=== PATIENT | female | born 1960 | race Caucasian/White ===

== ENCOUNTER 2017-07-08 22:23 | Emergency (ER) | payer OTHER | END 2017-07-09 02:04 | disposition home or self-care (01) | LOC: E/R 07-09 02:04 | DX: F10.920 Alcohol use, unspecified with intoxication, uncomplicated (principal); S00.83XA Contusion of other part of head, initial encounter; I10 Essential (primary) hypertension; R40.2142 Coma scale, eyes open, spontaneous, at arrival to emergency department; R40.2252 Coma scale, best verbal response, oriented, at arrival to emergency department; R40.2332 Coma scale, best motor response, abnormal flexion, at arrival to emergency department; W01.198A Fall on same level from slipping, tripping and stumbling with subsequent striking against other object, initial encounter; Y92.9 Unspecified place or not applicable | CPT/HCPCS: 70450; 99284-25 ==

== ENCOUNTER 2017-10-07 23:33 | Emergency (ER) | payer SELFPAY, OTHER | END 2017-10-08 03:04 | disposition left against medical advice (07) | LOC: FTE 23:33 | DX: Z53.21 Procedure and treatment not carried out due to patient leaving prior to being seen by health care provider (principal) ==

== ENCOUNTER 2017-11-03 06:40 | Inpatient (IN) | payer OTHER ==
[2017-11-03] MEDS: ONDANSETRON 4 MG INJ IV ×4 (06:52→23:21)
[2017-11-03] MEDS: morphine 2 MG INJ IV (06:53)
[2017-11-03] MEDS: SOD CHLORIDE 0.9% 1,000 ML IV ×2 (06:53→20:47)
[2017-11-03] MEDS: DIPHTH/TET/ACEL PERTUSS (ADULT) 0.5 ML VIAL IM* (06:54)
[2017-11-03 07:23] LABS: ADD MAN DIFF? NO; BASOPHIL # 0.1 10^3/ul (0.0-0.1); BASOPHILS % 1.2 % (0.0-2.0); HEMATOCRIT 32.4 % (37.0-47.0); HEMOGLOBIN 10.9 g/dl (12.0-16.0); IMMATURE GRANS #M 0.03 10^3/ul; IMMATURE GRANS % (M) 0.3 %; LYMPHOCYTES # 0.9 10^3/ul (0.8-2.9); LYMPHOCYTES % 8.2 % (15.0-51.0); MEAN CORPUSCULAR HEMOGLOBIN 30.8 pg (29.0-33.0); MEAN CORPUSCULAR HGB CONC 33.6 g/dl (32.0-37.0); MEAN CORPUSCULAR VOLUME 91.5 fl (82.0-101.0); MEAN PLATELET VOLUME 9.4 fl (7.4-10.4); MONOCYTE # 0.4 10^3/ul (0.3-0.9); MONOCYTES % 3.3 % (0.0-11.0); NEUTROPHIL # 9.6 10^3/ul (1.6-7.5); PLATELET COUNT 251 10^3/UL (140-415); RED BLOOD COUNT 3.54 10^6/ul (4.20-5.40); RED CELL DISTRIBUTION WIDTH 15.9 % (11.5-14.5)
[2017-11-03 07:40] LABS: ALANINE AMINOTRANSFERASE 27 IU/L (13-69); ALBUMIN 4.3 g/dl (3.3-4.9); ALBUMIN/GLOBULIN RATIO 1.19; ALKALINE PHOSPHATASE 179 IU/L (42-121); ANION GAP 23 (8-16); ASPARTATE AMINO TRANSFERASE 77 IU/L (15-46); BILIRUBIN,INDIRECT 0.3 mg/dl (0-1.1); BILIRUBIN,TOTAL 0.3 mg/dl (0.2-1.3); BLOOD UREA NITROGEN 10 mg/dl (7-20); CALCIUM 8.7 mg/dl (8.4-10.2); CARBON DIOXIDE 17 mmol/L (21-31); CHLORIDE 111 mmol/L (97-110); CREATINE KINASE 148 IU/L (23-200); CREATININE 0.41 mg/dl (0.44-1.00); GLUCOSE 99 mg/dl (70-220); POTASSIUM 3.3 mmol/L (3.5-5.1); SODIUM 148 mmol/L (135-144); TOTAL PROTEIN 7.9 g/dl (6.1-8.1)
[2017-11-03 07:43] LABS: INR 1.05; PROTIME 13.8 Sec (11.9-14.9); PT RATIO 1.1
[2017-11-03 07:52] LABS: CK INDEX 0.6; CK-MB 0.94 ng/ml (0.0-2.4); TROPONIN-I < 0.010 ng/ml (0.000-0.120)
[2017-11-03] MEDS: MAGNESIUM SULFATE 2 GM, MULTIVITAMINS 10 ML, THIAMINE 100 MG, FOLIC ACID 1 MG in SOD CH... IV (08:17)
[2017-11-03] MEDS: HYDROmorphONE 1 MG/ML SYG IV (08:17)
[2017-11-03] MEDS: HYDROmorphONE 2 MG/ML SYG IV (09:11)
[2017-11-03 10:10] LABS: ADD UMIC YES; UR ASCORBIC ACID NEGATIVE (NEGATIVE); UR BACTERIA FEW /HPF (NONE SEEN); UR BILIRUBIN (Dip) NEGATIVE (NEGATIVE); UR BLOOD (Dip) NEGATIVE (NEGATIVE); UR CLARITY CLOUDY (CLEAR); UR COLOR YELLOW (YELLOW); UR GLUCOSE (Dip) NEGATIVE (NEGATIVE); UR KETONES (Dip) 1+ mg/dL (NEGATIVE); UR LEUKOCYTE ESTERASE (Dip) 3+ Leu/ul (NEGATIVE); UR NITRITE (Dip) NEGATIVE (NEGATIVE); UR NONSQUAMOUS EPITHELIAL CELL 5 /HPF (NONE SEEN); UR RBC 8 /HPF (0-5); UR RENAL EPITHELIAL CELL FEW /HPF (NONE SEEN); UR SQUAMOUS EPITHELIAL CELL FEW /HPF (FEW); UR TOTAL PROTEIN (Dip) 2+ mg/dl (NEGATIVE); UR UROBILINOGEN (Dip) NEGATIVE (NEGATIVE); UR WBC 133 /HPF (0-5)
[2017-11-03 10:18] LABS: AMPHETAMINE/METHAMPHETAMINE Negative (NEGATIVE); BARBITURATES Negative (NEGATIVE); BENZODIAZEPINES Negative (NEGATIVE); CANNABINOIDS Negative (NEGATIVE); COCAINE Negative (NEGATIVE)
[2017-11-03 10:19] LABS: OPIATES Positive (NEGATIVE)
[2017-11-03] MEDS ORDERED: MAGNESIUM HYDROXIDE 30ML CUP PO (16:30)
[2017-11-03] MEDS ORDERED: OXYCODONE/ACETAMINOPHEN (5/325) TAB PO (16:30)
[2017-11-03] MEDS ORDERED: ACETAMINOPHEN 325 MG TAB PO (16:30)
[2017-11-03] MEDS ORDERED: DOCUSATE SODIUM 100 MG CAP PO (16:30)
[2017-11-03] MEDS ORDERED: BISACODYL 10 MG SUPP PR (16:30)
[2017-11-03] MEDS ORDERED: NACL 0.9% 3 ML SYG IV (16:30)
[2017-11-03] MEDS: HYDROmorphONE 0.5 MG/0.5 ML SYG IV ×2 (16:41→21:00)
[2017-11-03] MEDS: METOPROLOL 25 MG TAB PO (20:59)
[2017-11-03] MEDS: ATORVASTATIN 40 MG TAB PO (21:00)
[2017-11-03] MEDS: traZODone 50 MG TAB PO (21:54)
[2017-11-03] MEDS: OXYCODONE/ACETAMINOPHEN (5/325) TAB PO (23:15)
[2017-11-04] MEDS: LORAZEPAM 2 MG INJ IV (01:05)
[2017-11-04] MEDS: SOD CHLORIDE 0.9% 1,000 ML IV ×2 (01:51→12:27)
[2017-11-04] MEDS: PANTOPRAZOLE (EC) 40 MG TAB PO (05:53)
[2017-11-04 06:08] LABS: ADD MAN DIFF? NO
[2017-11-04 06:13] LABS: BASOPHIL # 0.1 10^3/ul (0.0-0.1); BASOPHILS % 0.9 % (0.0-2.0); EOSINOPHILS % 0.2 % (0.0-7.0); HEMATOCRIT 28.5 % (37.0-47.0); HEMOGLOBIN 9.4 g/dl (12.0-16.0); IMMATURE GRANS #M 0.03 10^3/ul; IMMATURE GRANS % (M) 0.3 %; LYMPHOCYTES # 1.4 10^3/ul (0.8-2.9); LYMPHOCYTES % 14.9 % (15.0-51.0); MEAN CORPUSCULAR HEMOGLOBIN 30.6 pg (29.0-33.0); MEAN CORPUSCULAR VOLUME 92.8 fl (82.0-101.0); MEAN PLATELET VOLUME 10.3 fl (7.4-10.4); MONOCYTE # 0.7 10^3/ul (0.3-0.9); MONOCYTES % 7.2 % (0.0-11.0); NEUTROPHIL # 6.9 10^3/ul (1.6-7.5); NEUTROPHILS % 76.5 % (39.0-77.0); PLATELET COUNT 178 10^3/UL (140-415); RED BLOOD COUNT 3.07 10^6/ul (4.20-5.40); RED CELL DISTRIBUTION WIDTH 15.8 % (11.5-14.5)
[2017-11-04 06:13] LABS: WHITE BLOOD COUNT 9.1 10^3/ul (4.8-10.8)
[2017-11-04 06:47] LABS: CREATINE KINASE 319 IU/L (23-200)
[2017-11-04 06:48] LABS: ANION GAP 17 (8-16); BLOOD UREA NITROGEN 5 mg/dl (7-20); CALCIUM 7.8 mg/dl (8.4-10.2); CARBON DIOXIDE 19 mmol/L (21-31); CHLORIDE 102 mmol/L (97-110); GLUCOSE 104 mg/dl (70-220); MAGNESIUM 1.2 mg/dl (1.7-2.5); POTASSIUM 3.5 mmol/L (3.5-5.1); SODIUM 134 mmol/L (135-144)
[2017-11-04] MEDS ORDERED: ENOXAPARIN 40 MG/0.4 ML SYG SC (09:00)
[2017-11-04] MEDS: METOPROLOL 25 MG TAB PO (09:03)
[2017-11-04] MEDS: POTASSIUM CHLORIDE (SR) 20 MEQ TAB PO (09:03)
[2017-11-04] MEDS: FLUOXETINE 20 MG CAP PO (09:08)
[2017-11-04] MEDS: MULTIVITAMINS 10 ML, THIAMINE 100 MG, FOLIC ACID 1 MG in SOD CHLORIDE 0.9% 1,000 ML IVPB (09:08)
[2017-11-04] MEDS: HYDROmorphONE 0.5 MG/0.5 ML SYG IV (09:10)
[2017-11-04] MEDS: MAGNESIUM SULFATE 4 GM/100 ML 100 ML IVPB (11:18)
[2017-11-04] MEDS: POTASSIUM PHOSPHATE 30 MM in SOD CHLORIDE 0.9% 250 ML IVPB (15:02)
[2017-11-04] MEDS: ONDANSETRON 4 MG INJ IV (18:17)
[2017-11-04] MEDS: HYDROmorphONE 2 MG TAB PO (18:19)
== END 2017-11-04 19:15 | disposition short-term general hospital (02) | DRG 563 ==
LOC: E/R 06:40 → 2NE 16:29
DX: S42.331A Displaced oblique fracture of shaft of humerus, right arm, initial encounter for closed fracture (principal); E87.2 Acidosis; F10.230 Alcohol dependence with withdrawal, uncomplicated; S02.2XXA Fracture of nasal bones, initial encounter for closed fracture; I10 Essential (primary) hypertension; E78.5 Hyperlipidemia, unspecified; F32.9 Major depressive disorder, single episode, unspecified; Y90.7 Blood alcohol level of 200-239 mg/100 ml; E87.6 Hypokalemia; F10.220 Alcohol dependence with intoxication, uncomplicated; W01.198A Fall on same level from slipping, tripping and stumbling with subsequent striking against other object, initial encounter; Y93.01 Activity, walking, marching and hiking; Y92.89 Other specified places as the place of occurrence of the external cause; Y99.8 Other external cause status
CPT/HCPCS: 70450; 70486; 71045; 72125; 72170; 73060-RT; 80048; 80053; 80307; 81001; 82550; 82553; 83735; 84100; 84484; 85025; 85610; 85730; 86850; 86900; 86901; 90471; 90715; 93005; 96361; 96365; 96366; 96375; 96376; 99285-25

== ENCOUNTER 2017-11-13 17:25 | Emergency (ER) | payer OTHER ==
[2017-11-13] MEDS: IBUPROFEN 800 MG TAB PO (18:03)
== END 2017-11-13 20:08 | disposition home or self-care (01) ==
LOC: E/R 17:25
DX: F10.129 Alcohol abuse with intoxication, unspecified (principal); G89.18 Other acute postprocedural pain; I10 Essential (primary) hypertension; R40.2142 Coma scale, eyes open, spontaneous, at arrival to emergency department; R40.2252 Coma scale, best verbal response, oriented, at arrival to emergency department; R40.2362 Coma scale, best motor response, obeys commands, at arrival to emergency department
CPT/HCPCS: 99283; Z7502